=== PATIENT | male | born 1960 | race Caucasian/White ===

== ENCOUNTER 2017-12-22 14:40 | Inpatient (IN) | END 2017-12-31 16:36 | disposition home health service (06) | DRG 829 ==

== ENCOUNTER 2018-01-18 10:06 | Inpatient (IN) | END 2018-01-24 13:45 | disposition home or self-care (01) | DRG 847 ==

== ENCOUNTER 2018-02-14 10:25 | Inpatient (IN) | END 2018-02-18 21:10 | disposition short-term general hospital (02) | DRG 847 ==